=== PATIENT | male | born 1960 | race Caucasian/White ===

== ENCOUNTER 2016-03-24 07:29 | Day surgery (SDC) | payer BC ==
[~2016-03-24] VITALS: Ht 177.8 cm; Wt 122.5 kg
[~2016-03-24 07:29] MED LIST: ALEVE220 MG PO; AMBIEN5 M1 GT; AMLODIPINE BESY10 MG PO; APAP160 MG/5 M PO; ARTIFICIAL TEAR15 M9 OP; Aspirin E.C. PO; BISCOLAX10 MG RC; CARAFATE100 MG/ML GT; DILANTIN-1125 MG/5 M GT; DIOVAN HCT 11 TABLE1 GT; DIOVAN HCT 11 TABLE1 PO; DIOVAN320 MG PO; DULCOLAX10 MG PR; EFFEXOR XR37.5 MG GT; EFFEXOR XR37.5 MG PO; EFFIENT10 MG PO; FENOFIBRATE145 M1 PO; FISH OIL 1,2001 EAC4 GT; HYDROCHLOROTH12.5 M3 PO; KEPPRA ORAL100 MG/ML GT; LEVOTHYROXINE75 MCG PO; LIDEX 0.05% CRE60 GM TP; LIORESAL I2000 MCG/1; LIORESAL I2000 MCG/1 GT; LITE COAT ASPI325 M1 PO; LIVALO2 MG PO; LOPRESSOR25 MG PO; LOPRESSOR50 MG G-TUBE; PHENERGAN25 MG/ML GT; PRILOSEC20 MG PO; REGLAN5 MG/ML GT; VALSARTAN-HCTZ1 EACH PO; VENLAFAXINE HCL75 M3 PO; WELCHOL625 MG GT; WELCHOL625 MG PO; [UNRECOGNIZED DRUG - OTHER] GT
[2016-03-24 07:55] VITALS: BP 155/79
[2016-03-24] MEDS ORDERED: PERCOCET 5/31 TABLET PO (11:37)
[2016-03-24] MEDS ORDERED: COLACE100 MG PO (11:37)
[2016-03-24 13:00] VITALS: BP 156/80
[2016-03-24 14:02] VITALS: BP 177/81
== END 2016-03-24 14:10 | disposition home or self-care (01) ==
LOC: SDC 07:29
DX: K42.0 Umbilical hernia with obstruction, without gangrene (principal); E78.5 Hyperlipidemia, unspecified; I12.9 Hypertensive chronic kidney disease with stage 1 through stage 4 chronic kidney disease, or unspecified chronic kidney disease; N18.9 Chronic kidney disease, unspecified; I25.10 Atherosclerotic heart disease of native coronary artery without angina pectoris; Z95.5 Presence of coronary angioplasty implant and graft
CPT/HCPCS: C1781; J0330; J0690; J1100; J1885; J2250; J2405; J2710; J3010